=== PATIENT | female | born 1975 | race Two or more races ===

== ENCOUNTER 2018-07-27 21:57 | Emergency (ER) | payer OTHER ==
[~2018-07-27] VITALS: Ht 162.6 cm; Wt 57.2 kg
[2018-07-27 22:19] VITALS: BP 142/78
[2018-07-27] MEDS ORDERED: MECLIZINE HCL 12.5 MG TABLET PO ONE (23:00)
[2018-07-27] MEDS ORDERED: MECLIZINE HCL 25 MG TABLET ONE (23:10)
== END 2018-07-27 23:45 | disposition home or self-care (01) ==
LOC: ER 22:03
DX: H81.10 Benign paroxysmal vertigo, unspecified ear (principal); Z88.6 Allergy status to analgesic agent
CPT/HCPCS: 84703; 99283; J8597

== ENCOUNTER 2020-01-19 01:24 | Emergency (ER) | payer OTHER ==
[~2020-01-19] VITALS: Ht 160 cm; Wt 59.0 kg
--- NOTE | 2020-01-19 01:35 | NUR ---
PT BIBSELF C/O COUGH AND FEVER X10 DAYS CYBERATHLETE. PT DENIES CLOSE CONTACT WITH POSITIVE COVID. PT AAOX4. RESPIRATIONS EVEN AND UNLABORED. O2 SAT 99% ON ROOM AIR, AFEBRILE ON ARRIVAL. VITAL SIGNS STABLE. NO ACUTE DISTRESS NOTED AT THIS TIME. WILL CONTINUE TO MONITOR
--- NOTE | 2020-01-19 01:55 | NUR ---
FACILITY OPERATIONS MANAGER AT BEDSIDE FOR BLOOD DRAW
--- NOTE | 2020-01-19 02:00 | NUR ---
COVID AND INFLUENZA SWABS COLLECTED AND SENT TO LAB
--- NOTE | 2020-01-19 02:05 | NUR ---
RADIOLOGY AT BEDSIDE FOR CXR
[2020-01-19 02:27] LABS: CALCIUM, SERUM 9.1 mg/dL (8.5-10.1); CREATININE 0.8 mg/dL (0.6-1.3); POTASSIUM 3.8 mmol/L (3.5-5.1)
[2020-01-19 02:39] LABS: ALBUMIN 3.6 g/dL (3.4-5.0); BASOPHILS % (AUTO) 0.5 % (0.0-2.0); BILIRUBIN,DIRECT 0.1 mg/dL (0.0-0.2); BILIRUBIN,TOTAL 0.3 mg/dL (0.2-1.0); EOSINOPHILS % (AUTO) 0.6 % (0.0-6.0); HEMATOCRIT 35 % (33-45); HEMOGLOBIN 11.6 g/dL (11.5-14.8); LYMPHOCYTES # (AUTO) 1.5 /CMM (0.8-4.8); LYMPHOCYTES % (AUTO) 39.8 % (20.0-44.0); MEAN CORPUSCULAR HGB CONC 34 g/dl (31.0-36.0); MEAN CORPUSCULAR VOLUME 78 fL (82-100); MONOCYTES # (AUTO) 0.3 /CMM (0.1-1.30); MONOCYTES % (AUTO) 8.9 % (2.0-12.0); NEUTROPHILS # (AUTO) 1.9 /CMM (1.8-8.9); NEUTROPHILS % (AUTO) 50.2 % (43.0-81.0); PLATELET COUNT (AUTO) 213 /CMM (150-450); RED BLOOD CELL COUNT(AUTO) 4.45 MIL/uL (4.0-5.2); TOTAL PROTEIN, SERUM 7.6 g/dL (6.4-8.2); WHITE BLOOD COUNT (AUTO) 3.8 K/uL (4.3-11.0)
--- NOTE | 2020-01-19 03:30 | NUR ---
Patient discharged to home in stable condition. Written and verbal after care instructions given. Patient verbalizes understanding of instruction.Pt ambulatory with a steady gait
[2020-01-19 03:31] VITALS: BP 98/67
== END 2020-01-19 03:33 | disposition home or self-care (01) ==
LOC: ER 01:27
DX: U07.1 COVID-19 (principal); R06.00 Dyspnea, unspecified
CPT/HCPCS: 36415; 71045; 80048; 80076; 83880; 84702; 85025; 87426; 87804; 93005; 99285; C9803 ×2; U0003

== ENCOUNTER 2022-12-27 23:59 | Emergency (ER) | payer OTHER ==
[~2022-12-27] VITALS: Ht 160 cm; Wt 59.9 kg
[2022-12-28] MEDS ORDERED: IBUPROFEN 600 MG TABLET PO ONE (01:00)
[2022-12-28] MEDS ORDERED: ACETAMINOPHEN ES 500 MG TABLET PO ONE (01:00)
[2022-12-28] MEDS ORDERED: ACETAMINOPHEN ES 500 MG TABLET ONE (01:10)
[2022-12-28] MEDS ORDERED: IBUPROFEN 600 MG TABLET ONE (01:11)
[2022-12-28 01:43] VITALS: BP 109/69; TEMP 98.4; O2SAT 100
== END 2022-12-28 | disposition left against medical advice (07) ==
LOC: ER 12-28 00:08
DX: R05.9 Cough, unspecified (principal); Z20.822 Contact with and (suspected) exposure to COVID-19; Z88.1 Allergy status to other antibiotic agents
CPT/HCPCS: 99284; 71045; 87426; A4223; C9803